=== PATIENT | female | born 1995 | race Caucasian/White ===

== ENCOUNTER 2017-07-12 17:23 | Emergency (ER) | payer SELFPAY ==
[~2017-07-12] VITALS: Ht 157.5 cm; Wt 74.0 kg
[~2017-07-12 17:23] MED LIST: TRAM50TA PO
[2017-07-12 17:26] VITALS: BP 135/67; PULSE 56; RESP 16; TEMP 98.5; O2SAT 100
[2017-07-12] MEDS ORDERED: ONDANSETRON HCL 4 MG/2 ML VIAL IV PUSH ONE (17:45)
[2017-07-12] MEDS ORDERED: HYDROmorphone HCL PF 2 MG/ML VIAL IV PUSH ONE (17:45)
[2017-07-12] MEDS ORDERED: SODIUM CHLOR 0.9% 1000 ML INJ 1,000 ML IV ONE (17:45)
[2017-07-12] MEDS ORDERED: KETOROLAC TROMETHAMINE 30 MG/ML (IVP) VIAL IV PUSH ONE (17:45)
--- NOTE | 2017-07-12 17:45 | PD ---
HPI Chief Complaint: Flank/Kidney Pain Time Seen by Provider: 17:34 Travel History International Travel<30 days: No Contact w/Intl Traveler<30days: No Traveled to known affect area: No History of Present Illness HPI This 22-year-old female is complaining of left flank pain. She says she had a sudden onset of quite severe flank pain was she was going home from work today. She came directly to the emergency department. She has a history of kidney stones and says she is up 4 5 this year. She was in [place] when she had them. She was here in December [address] scan which showed that she had left sided kidney stones which were nonobstructing at that time. She says she has been nauseated and having pain. She has not noted blood in the urine. Pain is severe and associated with vomiting. It is constant PFSH Past Medical History Diminished Hearing: No Immunizations Current: Yes ?: Not LMP: ENDED YESTERDAY : 1 Para: 1 Past Surgical History Section: Yes Social History Alcohol Use: Yes (SOCIALLY) Tobacco Use: Yes (4 CIGS DAILY) Substance Use: No Allergies-Medications (Allergen,Severity, Reaction): Coded Allergies: No Known Allergies (Verified Adverse Reaction, Unknown, 07/12/17) Reported Meds & Prescriptions Reported Meds & Active Scripts Active Review of Systems Except as stated in HPI: all other systems reviewed are Neg General / Constitutional: No: Fever, Chills Eyes: No: Diploplia, Blurred Vision HENT: No: Headaches, Vertigo, Rhinorrhea Cardiovascular: No: Chest Pain or Discomfort, Palpitations Respiratory: No: Cough Gastrointestinal: Positive: Nausea, Vomiting Genitourinary: Positive: Flank Pain Skin: No Rash, No Itching Psychiatric: No: Anxiety Physical Exam Narrative GENERAL: Well developed female. She appears uncomfortable with pain SKIN: Focused skin assessment warm/dry. HEAD: Atraumatic. Normocephalic. EYES: Pupils equal and round. No scleral icterus. No injection or drainage. ENT: No nasal bleeding or discharge. Mucous membranes pink and moist. NECK: Trachea midline. No JVD. CARDIOVASCULAR: Regular rate and rhythm. No murmur appreciated. RESPIRATORY: No accessory muscle use. Clear to auscultation. Breath sounds equal bilaterally. GASTROINTESTINAL: Abdomen soft, non-tender, nondistended. Hepatic and splenic margins not palpable. There is left CVA tenderness MUSCULOSKELETAL: No obvious deformities. No clubbing. No cyanosis. No edema. NEUROLOGICAL: Awake and alert. No obvious cranial nerve deficits. Motor grossly within normal limits. Normal speech. PSYCHIATRIC: Appropriate mood and affect; insight and judgment normal. Data Data Last Documented VS Vital Signs Date Time Temp Pulse Resp B/P (MAP) Pulse Ox O2 Delivery O2 Flow Rate FiO2 07/12/17 17:26 98.5 56 16 135/67 (89) 100 Orders Orders Complete Blood Count With Diff (07/12/17 17:37) Basic Metabolic Panel (Bmp) (07/12/17 17:37) Urinalysis - C+S If Indicated (07/12/17 17:37) Sodium Chlor 0.9% 1000 Ml Inj (Ns 1000 M (07/12/17 17:45) Ondansetron Inj (Zofran Inj) (07/12/17 17:45) Hydromorphone Pf Inj (Dilaudid Pf Inj) (07/12/17 17:45) Ketorolac Inj (Toradol Inj) (07/12/17 17:45) Urine Culture (07/12/17 17:45) Labs Laboratory Tests Test 07/12/17 17:45 Urine Collection Type CLEAN CATCH Urine Color YELLOW Urine Turbidity CLOUDY Urine pH 6.0 Urine Specific [place] GREATER/EQUAL 1.030 Urine Protein 30 mg/dL Urine Glucose (UA) NEG mg/dL Urine Ketones 15 mg/dL Urine Occult Blood LARGE Urine Nitrite NEG Urine Bilirubin NEG Urine Urobilinogen 0.2 MG/DL Urine Leukocyte Esterase NEG Urine RBC 25-49 /hpf Urine WBC 3-5 /hpf Urine Squamous Epithelial Cells > 8 /hpf Urine Amorphous Sediment MOD Urine Bacteria MOD /hpf Microscopic Urinalysis Comment CULTURE INDICATED Urine Collection Time 1745 MDM Medical Decision Making Medical Screen Exam Complete: Yes Emergency Medical Condition: Yes Medical Record Reviewed: Yes Differential Diagnosis Differential includes pyelonephritis, musculoskeletal pain, renal colic Narrative Course Urine shows a large amount of blood and there is no evidence of pyelonephritis. She will be treated for renal colic Diagnosis Primary Impression: Renal colic on left side Scripts Ondansetron Odt (Zofran Odt) 4 Mg Tab 4 MG SL Q6HR Y for Nausea/Vomiting, #10 TAB 0 Refills Prov: Ed Kelly MD 07/12/17 Hydrocodone-Acetaminophen (Horicon) 10-325 Mg Tab 1 TAB PO Q4H Y for PAIN, #12 TAB 0 Refills Prov: Ed Kelly MD 07/12/17 Disposition: 01 DISCHARGE HOME Condition: Stable Ed Kelly MD July 12, 2017 17:45
[2017-07-12 17:57] LABS: BILIRUBIN, URINE NEG (NEG); BLOOD, URINE LARGE (NEG); GLUCOSE,URINE NEG (NEG); KETONE, URINE 15 mg/dL (NEG); NITRITE,URINE NEG (NEG); URINE COLOR YELLOW (YELLW/STRAW); URINE LEUKOCYTE ESTERASE NEG (NEG)
[2017-07-12 18:03] LABS: AMORPHOUS SEDIMENT, URINE MOD; BACTERIA, URINE MOD /hpf; SQUAMOUS EPITHELIAL CELL URINE > 8 /hpf (0-5)
[2017-07-12] MEDS ORDERED: ZOFR4TAB3 SL (18:22)
[2017-07-12] MEDS ORDERED: HYDR-3366 PO (18:22)
[2017-07-12 18:24] LABS: AUTOMATED NEUTROPHIL # 7.8 TH/MM3 (1.8-7.7); BASOPHIL # 0.1 TH/MM3 (0-0.2); BASOPHIL % 0.7 % (0.0-2.0); EOSINOPHIL # 0.1 TH/MM3 (0-0.4); EOSINOPHIL % 0.5 % (0.0-4.0); HEMATOCRIT 45.6 % (35.0-46.0); HEMOGLOBIN 16.2 GM/DL (11.6-15.3); LYMPH % 19.8 % (9.0-44.0); LYMPHOCYTE # 2.1 TH/MM3 (1.0-4.8); MEAN CELL VOLUME 90.9 FL (80.0-100.0); MEAN CORPUSCULAR HEMOGLOBIN 32.3 PG (27.0-34.0); MEAN CORPUSCULAR HGB CONC 35.5 % (32.0-36.0); MEAN PLATELET VOLUME 11.1 FL (7.0-11.0); MONO % 5.4 % (0.0-8.0); MONOCYTE # 0.6 TH/MM3 (0-0.9); NEUT % 73.6 % (16.0-70.0); PLATELET COUNT 198 TH/MM3 (150-450); RED BLOOD COUNT 5.02 MIL/MM3 (4.00-5.30); RED CELL DISTRIBUTION WIDTH 12.1 % (11.6-17.2); WHITE BLOOD COUNT 10.7 TH/MM3 (4.0-11.0)
[2017-07-12 18:38] LABS: BICARBONATE 23.9 MEQ/L (21.0-32.0)
[2017-07-12 18:41] LABS: CREATININE 0.92 MG/DL (0.50-1.00)
== END 2017-07-12 18:44 | disposition home or self-care (01) ==
LOC: PHED 17:23
DX: N23 Unspecified renal colic (principal); R11.2 Nausea with vomiting, unspecified; Z72.0 Tobacco use; Z87.442 Personal history of urinary calculi
CPT/HCPCS: 80048; 81001; 85025; 87086; 96361; 96374; 96375; 99284; J1170; J1885; J2405; J7030